=== PATIENT | female | born 1965 | race Caucasian/White ===

== ENCOUNTER → 2020-02-24 | Outpatient (CLI) | payer BC ==
--- NOTE | 2020-02-24 16:51 | REP ---
DIGITAL DIAGNOSTIC BILATERAL MAMMOGRAPHY WITH CAD, 3D TOMOGRAPHY, AND FOCUSED RIGHT BREAST SONOGRAPHY: HISTORY: The patient reports history of swollen nodes in the right axilla or upper outer quadrant region of the breast times 1 month. Bilateral breast pain. Clinician breast exam, history mass right breast. Axillary adenopathy. Bilateral mastodynia. No comparison breast imaging. MAMMOGRAPHIC FINDINGS: Scattered fibroglandular densities are seen. There is asymmetric breast parenchyma in the axillary tail region on the right. This area is non mass-like and contains fatty components within it consistent with normal asymmetric breast parenchyma. Normal-appearing axillary lymph nodes are visible bilaterally. There is no mass, spiculation, microcalcification, or architectural distortion in either breast visible mammographically. FOCUSED RIGHT BREAST SONOGRAPHIC FINDINGS: The right breast is examined at approximately 11-o'clock position in the area of the lump. Heterogeneous fibroglandular background echotexture is seen. No cyst or mass is observed sonographically. Several normal-appearing lymph nodes are visible in the right axilla. The largest of these measures 1.6 x 3.3 x 1.0 cm. These show normal morphologic findings with fat replaced hilar architecture. IMPRESSION:BIRADS 2: BI-RADS/ACR category 2 mammogram. Benign Findings. BI-RADS category 2 benign findings. Repeat screening mammography recommended in 1 year. Clinical follow-up is advised. This mammogram was interpreted with the aid of an FDA-approved computer-aided detection system. The patient states she had a clinical breast exam in January 2020. The patient letter being requested is M#2. This patient's estimated Tyrer-Cuzick lifetime risk assessment for breast cancer is 7.3%.
== END ==
LOC: M WHC 11:24
PROVIDERS: ATTEND Surgery
DX: N64.4 Mastodynia (principal); N63.10 Unspecified lump in the right breast, unspecified quadrant; R92.8 Other abnormal and inconclusive findings on diagnostic imaging of breast
CPT/HCPCS: 76642; 77066; G0279

== ENCOUNTER → 2020-03-11 | Outpatient (CLI) | payer BC ==
[~2020-03-11] MED LIST: ASPI81CH33 PO; ATOR40TA75 PO; BRIL90TA PO; HYDR12.55 PO; LISI40TA PO; METO1TAB33 PO; OMEP10CASR PO; SPIR-10 PO
[2020-03-11 14:35] VITALS: BP 130/78
--- NOTE | 2020-03-11 15:43 | REP ---
FOCUSED RIGHT BREAST SONOGRAPHY: HISTORY: Right breast mass. Sonographic guidance. FINDINGS: Sonographic guidance is provided to Dr. Hernandez who performed ultrasound-guided needle biopsy procedure and marker clip placement right breast.
--- NOTE | 2020-03-11 15:44 | REP ---
DIGITAL DIAGNOSTIC UNILATERAL RIGHT BREAST MAMMOGRAPHY WITH CAD: Two views. HISTORY: Marker clip placement views. Comparison mammography February 24, 2020. FINDINGS: A needle biopsy marker clip is noted within the asymmetric breast parenchymal opacity in the upper outer quadrant of the right breast. There is no evidence of hematoma.
--- NOTE | 2020-03-11 15:45 | REP ---
FOCUSED LEFT AXILLARY ULTRASOUND: HISTORY: Axillary lymphadenopathy. Pain. FINDINGS: Left axillary sonography demonstrates two identifiable axillary lymph nodes. Neither appear suspicious. Preserved fatty hilar architecture. The larger measures 2.6 x 1.1 x 3.0 cm. The other measures 1.9 x 0.9 x 1.3 cm. No mass or cyst is seen. IMPRESSION: BIRADS category 2 benign findings. Clinical follow-up is advised.
--- NOTE | 2020-03-17 12:32 | ROOPDOC ---
[facility] Report Of Operation Report of Operation DATE OF PROCEDURE: 03/11/20 PREPROCEDURE DIAGNOSES: Right breast density. POSTPROCEDURE DIAGNOSES: Right breast density. PROCEDURE: Ultrasound-guided biopsy of right breast density with clip placement. SURGEON: Bruce Vazquez SENIOR [employer] ARCHITECT: ANESTHESIA: Local anesthetic was given. ESTIMATED BLOOD LOSS: Approximately 1 mL. COMPLICATIONS: None. REMARKS: Postbiopsy clip seen on right breast mammogram in the middle of pr eviously noted mammographic density. DESCRIPTION OF PROCEDURE: Lidocaine 1% LOT [id number] Expiration 03/2023 Sodium Bicarbonate 8.4% LOT [id number] Expiration 03/2021 Hydromark clip LOT [id number] Expiration 09/2022 SHAPE 3 Bx device: BARD [id number] x10 cm LOT [id number] 3 1 0 2 Expiration 12/22 Informed consent was obtained. The most common risk and possible complications including bleeding, hematoma, bruising, infection, injury to surrounding structures were explained to the patient and she expressed understanding. Patient was placed on the bed in the supine position. Appropriate time out was done stating patients name, date of , and the procedure to be performed. The right breast was prepped and draped in the usual fashion. The ultrasound was used to confirm the location of the lesion in the right breast at 11:00 6 centimeters from the nipple. Plain Lidocaine 1% and 8.4% sodium bicarbonate 10:1 mix was used to anesthetize the skin, the biopsy site and tissues along the anticipated biopsy tract. Small skin incision was made with blade number 11. BARD Marquee 14G cannula with introducer ([id number]) was inserted through the incision and advanced under the ultrasound guidance to position immediately adjacent to the lesion. Next, the i ntroducer was removed and BARD Marquee 14G biopsy device was places in the cannula. Pre-biopsy imaging, and post-biopsy imaging were captured. Five good core biopsies were taken at various levels of the lesion. Specimen was placed in formaldehyde, labeled with appropriate biopsy site and patients name, and sent to pathology for evaluation. Next, the biopsy device was withdrawn and a clip introducer was inserted into the biopsy site via the cannula. The Hydromark clip was deployed under sonographic guidance. Post-clip placement image was captured. Manual pressure over the biopsy cavity and tract was held after the clip introducer was withdrawn. No bleeding was noted upon removal of the pressure. Post-biopsy mammogram of the right breast was obtained and showed clip in expected position. Postprocedural dressing was placed. Patient tolerated procedure well. Discharge instructions were discussed with the patient and she expressed understanding. . BRUCE VAZQUEZ DO March 17, 2020 12:18
== END ==
LOC: M WHC 12:20
PROVIDERS: ATTEND Surgery
DX: N60.89 Other benign mammary dysplasias of unspecified breast (principal); R59.0 Localized enlarged lymph nodes

== ENCOUNTER → 2021-03-11 | Outpatient (CLI) | payer BC ==
[~2021-03-11] MED LIST changes: -LISI40TA PO; +LISI40TA4 PO
--- NOTE | 2021-03-11 12:13 | REP ---
INDICATION: ASSESS STABILITY OF BIOPSIED RIGHT BREAST LESION. COMPARISON: Multiple the latest bilateral screening examination 02/24/2020 and prior unilateral mammogram 03/11/2020. TECHNIQUE: Digital mammography was obtained bilaterally in the CC and MLO projections in both 2D and 3D modalities and compared to the prior exams. By history, the patient has no complaints of a palpable breast abnormality or other significant breast complaints. Right breast ultrasonography was also obtained. FINDINGS: The breasts are unchanged in size and shape. There are no suzy soft tissue densities or spiculated masses. There is no internal architectural distortion. There are no suspicious microcalcifications. Stable benign calcifications are noted. There is no change in the position of the postprocedural biopsy clip in the right breast. Ultrasonography of the right breast was obtained and shows a postprocedural biopsy clip in place. There are no suspicious ultrasonographic findings. The Volpara volumetric breast density pattern is b. IMPRESSION: BIRADS/ACR category 2 negative mammogram and ultrasound exam as described above. There is no evidence of malignant alteration of either breast. This patient's Tyrer-Cuzick lifetime breast cancer risk assessment score is 7.9%. This mammogram was interpreted with the aid of an FDA-approved computer-aided detection system. The patient states she had a clinical breast exam in February 2020. The patient letter being requested is M1. RECOMMENDATION: Repeat screening mammography recommended 1 year (for women over 40). <Electronically signed by Gerardo Lopez > 03/11/21 [id number]
== END ==
LOC: M WHC 09:03
PROVIDERS: ATTEND Surgery
DX: R92.8 Other abnormal and inconclusive findings on diagnostic imaging of breast (principal)
CPT/HCPCS: 76642; 77066; G0279

== ENCOUNTER → 2022-03-14 | Outpatient (CLI) | payer BC | LOC: M WHC 08:09 | PROVIDERS: ATTEND Surgery | DX: N64.89 Other specified disorders of breast (principal) ==

== ENCOUNTER → 2023-03-17 | Outpatient (CLI) | payer BC | LOC: M WHC 07:53 | PROVIDERS: ATTEND Surgery | DX: Z12.31 Encounter for screening mammogram for malignant neoplasm of breast (principal) ==

== ENCOUNTER → 2023-09-28 | Outpatient (REF) | payer BC | LOC: M SFHCWAGY 13:12 | PROVIDERS: ATTEND Nurse Practitioner Family | DX: Z12.4 Encounter for screening for malignant neoplasm of cervix (principal) | CPT/HCPCS: 87624; G0123 ==

== ENCOUNTER → 2024-04-18 | Outpatient (CLI) | payer BC | LOC: M WHC 09:54 | PROVIDERS: ATTEND Nurse Practitioner Women's Health | DX: Z12.31 Encounter for screening mammogram for malignant neoplasm of breast (principal) ==

== ENCOUNTER → 2025-05-07 | Outpatient (REF) | payer BC ==
[~2025-05-07] MED LIST changes: +LISI40TA10 PO; -LISI40TA4 PO
[2025-05-09 14:11] LABS: HPV APTIMA Not Detected (Not Detected)
== END ==
LOC: M SFHCWAGY 15:13
PROVIDERS: ATTEND Nurse Practitioner Family
DX: Z12.4 Encounter for screening for malignant neoplasm of cervix (principal)
CPT/HCPCS: 87624; G0123

== ENCOUNTER → 2025-08-06 | Outpatient (CLI) | payer BC | LOC: M PLALAB 11:48 | PROVIDERS: ATTEND Surgery | DX: Z13.71 Encounter for nonprocreative screening for genetic disease carrier status (principal); Z80.3 Family history of malignant neoplasm of breast ==

== ENCOUNTER 2025-09-05 07:54 | Day surgery (SDC) | payer BC ==
[~2025-09-05] VITALS: Ht 172.7 cm; Wt 125.7 kg
[~2025-09-05 07:54] MED LIST changes: +ISOS-18 PO; +PRAV10TA43 PO; +REPA140I2 SC; +SEMA0.252 SQ; +VITA100093 PO
[2025-09-05] MEDS ORDERED: LR 1,000 ML IV SCH (08:00)
[2025-09-05] MEDS: SILVER NITRATE APPLICATOR (1 = QTY 10) As Ordered ONE (08:26)
[2025-09-05] MEDS ORDERED: ACETAMINOPHEN 1000MG/100ML IV BAG As Ordered ONE (08:49)
[2025-09-05] MEDS ORDERED: MIDAZOLAM INJ 2 MG/2 ML VIAL As Ordered ONE (08:49)
[2025-09-05 08:57] LABS: CALCIUM LEVEL 9.2 MG/DL (8.5-10.1); CARBON DIOXIDE LEVEL 27 MMOL/L (20-31); CHLORIDE LEVEL 107 MMOL/L (98-107); CREATININE FOR GFR 0.76 MG/DL (0.55-1.30); GLOMERULAR FILTRATION RATE > 90.0 (>51); POTASSIUM SERUM 4.1 MMOL/L (3.5-5.1); SODIUM LEVEL 142 MMOL/L (136-145)
[2025-09-05] MEDS ORDERED: LIDOCAINE 2% 100 MG/5 ML SDV (FOR ANES.) As Ordered ONE (09:10)
[2025-09-05] MEDS ORDERED: KETOROLAC 30 MG/ML 1 ML VIAL As Ordered ONE (09:10)
[2025-09-05] MEDS ORDERED: ONDANSETRON 4MG/2ML VIAL As Ordered ONE (09:10)
[2025-09-05] MEDS ORDERED: dexAMETHasone 4 MG/ML 1 ML VIAL As Ordered ONE (09:10)
[2025-09-05] MEDS: LIDOCAINE 1% SDV 30 ML VIAL As Ordered ONE (10:06)
[2025-09-05 10:24] VITALS: BP 123/64; TEMP 97; O2SAT 97
== END 2025-09-05 10:48 | disposition home or self-care (01) ==
LOC: M SDC 07:54
PROVIDERS: ATTEND Obstetrics & Gynecology
DX: N84.0 Polyp of corpus uteri (principal); I25.10 Atherosclerotic heart disease of native coronary artery without angina pectoris; I10 Essential (primary) hypertension; Z95.5 Presence of coronary angioplasty implant and graft; Z88.0 Allergy status to penicillin; Z79.899 Other long term (current) drug therapy
CPT/HCPCS: 36415; 58558; 80048; 85014; 85018; 86850; 86900; 86901; 88305; 93005; J0131; J1100; J1885; J2250; J2405; J3010